=== PATIENT | female | born 1950 | race African-American/Black ===

== ENCOUNTER 2018-05-15 21:35 | Inpatient (IN) | payer MEDICARE, OTHER ==
[~2018-05-15] VITALS: Ht 162.6 cm; Wt 71.7 kg
[~2018-05-15 21:35] MED LIST: ACET-2708 PO; AMLO10TA80 PO; HYDR-4009 PO; LOVA20TA2 PO; RANI300C8 PO
[2018-05-15 22:20] VITALS: BP 115/50
[2018-05-16] MEDS ORDERED: ACETAMINOPHEN 325MG TABLET PO PRN (00:15)
[2018-05-16] MEDS ORDERED: OXYCODONE HCL 5MG TABLET PO PRN (00:15)
[2018-05-16] MEDS ORDERED: SENNOSIDES/DOCUSATE SOD 8.6/50MG TABLET PO PRN (00:45)
[2018-05-16] MEDS ORDERED: ONDANSETRON HCL 4MG TABLET PO PRN (00:45)
[2018-05-16] MEDS ORDERED: IPRATROPIUM/ALBUTEROL 0.5-3(2.5)MG/3ML NEB HHN PRN (00:45)
[2018-05-16 02:21] VITALS: BP 115/50
[2018-05-16] MEDS: HYDROCODONE/ACETAMINOPHEN 10/325MG TABLET PO PRN ×6 (02:21→23:19)
[2018-05-16] MEDS: OMEPRAZOLE 20MG CAPSULE EXTENDED RELEASE PO SCH (07:06)
[2018-05-16] MEDS: MAGNESIUM HYDROXIDE 400MG/5ML 30ML UDC PO PRN (07:06)
[2018-05-16 08:00] VITALS: BP 104/56
[2018-05-16] MEDS: AMLODIPINE 10MG TABLET PO SCH (09:00)
[2018-05-16] MEDS: NICOTINE 21MG PATCH TD SCH (09:15)
[2018-05-16] MEDS: IPRATROPIUM/ALBUTEROL 0.5-3(2.5)MG/3ML NEB HHN SCH ×3 (09:22→20:14)
[2018-05-16] MEDS ORDERED: NA PHOS,M-B/NA PHOS,DI-BA ENEMA 118ML PR NR (09:45)
[2018-05-16] MEDS ORDERED: LACTULOSE 20G/30ML UDC PO NR (09:45)
[2018-05-16 09:56] LABS: BASOPHILS % 0.7 % (0.0-2.0); HEMATOCRIT. 29.3 % (36.0-48.0); LYMPHOCYTES % 23.7 % (20.0-50.0); MEAN CORPUSCULAR HEMOGLOBIN 30.7 pg (28.0-32.0); MEAN CORPUSCULAR VOLUME 89.4 fL (81.0-99.0); MEAN PLATELET VOLUME 7.7 fl (7.4-10.4); NEUTROPHILS % 62.6 % (40.0-76.0); PLATELET 328 x1000/uL (130-400); RED BLOOD CELL COUNT 3.27 mill/uL (4.2-5.4)
[2018-05-16 10:36] LABS: CHLORIDE 102 mEq/L (98-107)
[2018-05-16] MEDS ORDERED: BISACODYL 10MG SUPP PR PRN (10:45)
[2018-05-16 15:23] LABS: CLARITY URINE CLEAR (CLEAR); COLOR URINE YELLOW (YELLOW); KETONES URINE NEGATIVE (NEGATIVE); LEUKOCYTE ESTERASE URINE TRACE (NEGATIVE); NITRITE URINE NEGATIVE (NEGATIVE); OCCULT BLOOD URINE NEGATIVE (NEGATIVE); PROTEIN URINE NEGATIVE (NEGATIVE); SPECIFIC GRAVITY URINE 1.012 (1.005-1.030); UROBILINOGEN URINE 0.2 E.U./dL (0.2-1.0)
[2018-05-16] MEDS: DOCUSATE SODIUM 100MG CAPSULE PO SCH (17:00)
[2018-05-16 20:00] VITALS: BP 104/63
[2018-05-16] MEDS: ATORVASTATIN CALCIUM 20MG TABLET PO SCH (21:16)
[2018-05-16] MEDS: POLYETHYLENE GLYCOL 3350 (17GM) 1 DOSE PACK PO SCH (21:16)
[2018-05-17] MEDS: IPRATROPIUM/ALBUTEROL 0.5-3(2.5)MG/3ML NEB HHN SCH ×4 (00:10→20:30)
[2018-05-17] MEDS: HYDROCODONE/ACETAMINOPHEN 10/325MG TABLET PO PRN ×3 (03:38→14:37)
[2018-05-17 06:40] VITALS: BP 103/60
[2018-05-17] MEDS: OMEPRAZOLE 20MG CAPSULE EXTENDED RELEASE PO SCH (06:43)
[2018-05-17 08:10] LABS: EOSINOPHILS % 1.6 % (0.0-5.0); HEMATOCRIT. 29.7 % (36.0-48.0); HEMOGLOBIN. 10.1 g/dL (12.0-16.0); LYMPHOCYTES % 24.7 % (20.0-50.0); MEAN CORPUSCULAR HEMOGLOBIN 30.1 pg (28.0-32.0); MEAN CORPUSCULAR VOLUME 88.9 fL (81.0-99.0); MEAN PLATELET VOLUME 7.4 fl (7.4-10.4); MONOCYTES % 10.9 % (2.0-8.0); NEUTROPHILS % 61.8 % (40.0-76.0); PLATELET 377 x1000/uL (130-400); RED BLOOD CELL COUNT 3.35 mill/uL (4.2-5.4)
[2018-05-17 08:34] LABS: CHLORIDE 100 mEq/L (98-107)
[2018-05-17] MEDS: NICOTINE 21MG PATCH TD SCH (08:45)
[2018-05-17] MEDS: AMLODIPINE 10MG TABLET PO SCH (08:45)
[2018-05-17] MEDS: DOCUSATE SODIUM 100MG CAPSULE PO SCH ×2 (08:45→16:31)
[2018-05-17 09:45] VITALS: BP 106/72
[2018-05-17 10:11] LABS: CLARITY URINE CLEAR (CLEAR); COLOR URINE YELLOW (YELLOW); KETONES URINE NEGATIVE (NEGATIVE); LEUKOCYTE ESTERASE URINE NEGATIVE (NEGATIVE); NITRITE URINE NEGATIVE (NEGATIVE); OCCULT BLOOD URINE NEGATIVE (NEGATIVE); PROTEIN URINE NEGATIVE (NEGATIVE); SPECIFIC GRAVITY URINE 1.011 (1.005-1.030); UROBILINOGEN URINE 0.2 E.U./dL (0.2-1.0)
[2018-05-17] MEDS: TRAMADOL 50MG TABLET PO PRN (10:15)
[2018-05-17 14:30] VITALS: BP 105/62
[2018-05-17 20:00] VITALS: BP 101/56
[2018-05-17] MEDS: POLYETHYLENE GLYCOL 3350 (17GM) 1 DOSE PACK PO SCH (21:44)
[2018-05-17] MEDS: ATORVASTATIN CALCIUM 20MG TABLET PO SCH (21:45)
[2018-05-17] MEDS: OXYCODONE HCL 20MG TABLET SR 12HR PO SCH (21:47)
[2018-05-18] VITALS: BP 108/66
[2018-05-18] MEDS: IPRATROPIUM/ALBUTEROL 0.5-3(2.5)MG/3ML NEB HHN SCH ×4 (02:31→21:58)
[2018-05-18] MEDS: HYDROCODONE/ACETAMINOPHEN 10/325MG TABLET PO PRN ×2 (02:51→17:46)
[2018-05-18] MEDS: OMEPRAZOLE 20MG CAPSULE EXTENDED RELEASE PO SCH (06:04)
[2018-05-18 07:00] VITALS: BP 97/62
[2018-05-18 07:25] LABS: BASOPHILS % 0.6 % (0.0-2.0); EOSINOPHILS % 2.2 % (0.0-5.0); LYMPHOCYTES % 31.5 % (20.0-50.0); MEAN CORPUSCULAR HEMOGLOBIN 30.8 pg (28.0-32.0); MEAN CORPUSCULAR VOLUME 89.1 fL (81.0-99.0); MEAN PLATELET VOLUME 7.6 fl (7.4-10.4); MONOCYTES % 11.3 % (2.0-8.0); NEUTROPHILS % 54.4 % (40.0-76.0); PLATELET 382 x1000/uL (130-400); RED BLOOD CELL COUNT 2.92 mill/uL (4.2-5.4); RED CELL DISTRIBUTION WIDTH 13.9 % (11.6-14.6)
[2018-05-18 07:35] LABS: CHLORIDE 102 mEq/L (98-107)
[2018-05-18 07:43] LABS: PHOSPHORUS 2.6 mg/dL (2.5-4.9)
[2018-05-18 07:46] LABS: CREATINE KINASE 89 IU/L (26-192); TOTAL IRON BINDING CAPACITY 268 ug/dL (250-450)
[2018-05-18 08:03] LABS: VITAMIN B12 SERUM 815 pg/mL (211-911)
[2018-05-18] MEDS: DOCUSATE SODIUM 100MG CAPSULE PO SCH ×2 (08:17→16:55)
[2018-05-18] MEDS: NICOTINE 21MG PATCH TD SCH (08:17)
[2018-05-18 08:18] LABS: FOLIC ACID (FOLATE) SERUM > 20.00 ng/mL (>5.38)
[2018-05-18] MEDS: OXYCODONE HCL 20MG TABLET SR 12HR PO SCH ×2 (08:20→21:58)
[2018-05-18] MEDS: AMLODIPINE 10MG TABLET PO SCH (08:24)
[2018-05-18 15:10] LABS: FERRITIN 264 ng/mL (10-291)
[2018-05-18] MEDS: LACTULOSE 20G/30ML UDC PO SCH ×2 (16:55→21:00)
[2018-05-18] MEDS: FERROUS SULFATE 325MG TABLET PO SCH (16:55)
[2018-05-18 17:40] VITALS: BP 115/70
[2018-05-18 20:00] VITALS: BP 103/63
[2018-05-18] MEDS: POLYETHYLENE GLYCOL 3350 (17GM) 1 DOSE PACK PO SCH (21:00)
[2018-05-18] MEDS: ATORVASTATIN CALCIUM 20MG TABLET PO SCH (21:57)
[2018-05-19] MEDS: IPRATROPIUM/ALBUTEROL 0.5-3(2.5)MG/3ML NEB HHN SCH ×4 (02:00→20:15)
[2018-05-19] MEDS: HYDROCODONE/ACETAMINOPHEN 10/325MG TABLET PO PRN (03:43)
[2018-05-19] MEDS: OMEPRAZOLE 20MG CAPSULE EXTENDED RELEASE PO SCH (06:22)
[2018-05-19 07:14] LABS: CHLORIDE 104 mEq/L (98-107)
[2018-05-19 07:41] LABS: BASOPHILS % 0.8 % (0.0-2.0); EOSINOPHILS % 2.6 % (0.0-5.0); HEMOGLOBIN. 8.9 g/dL (12.0-16.0); LYMPHOCYTES % 34.4 % (20.0-50.0); MEAN CORPUSCULAR HEMOGLOBIN 30.7 pg (28.0-32.0); MEAN CORPUSCULAR VOLUME 89.1 fL (81.0-99.0); MEAN PLATELET VOLUME 7.6 fl (7.4-10.4); MONOCYTES % 11.5 % (2.0-8.0); NEUTROPHILS % 50.7 % (40.0-76.0); PLATELET 419 x1000/uL (130-400); RED BLOOD CELL COUNT 2.91 mill/uL (4.2-5.4); RED CELL DISTRIBUTION WIDTH 13.8 % (11.6-14.6)
[2018-05-19 08:00] VITALS: BP_SYST 107; BP_SYST 114; BP_DIAS 65; BP_DIAS 72
[2018-05-19] MEDS: ASCORBIC ACID 500 MG TABLET PO SCH (08:53)
[2018-05-19] MEDS: FERROUS SULFATE 325MG TABLET PO SCH ×3 (08:53→17:33)
[2018-05-19] MEDS: NICOTINE 21MG PATCH TD SCH (08:53)
[2018-05-19] MEDS: OXYCODONE HCL 20MG TABLET SR 12HR PO SCH ×2 (08:54→21:48)
[2018-05-19] MEDS: DOCUSATE SODIUM 100MG CAPSULE PO SCH ×2 (08:59→17:00)
[2018-05-19] MEDS: LACTULOSE 20G/30ML UDC PO SCH (08:59)
[2018-05-19] MEDS: AMLODIPINE 10MG TABLET PO SCH (08:59)
[2018-05-19] MEDS: TRAMADOL 50MG TABLET PO PRN (13:18)
[2018-05-19 20:00] VITALS: BP_SYST 118; BP_DIAS 67; BP_DIAS 97
[2018-05-19] MEDS: POLYETHYLENE GLYCOL 3350 (17GM) 1 DOSE PACK PO SCH (21:00)
[2018-05-19] MEDS: ATORVASTATIN CALCIUM 20MG TABLET PO SCH (21:46)
[2018-05-20] MEDS: IPRATROPIUM/ALBUTEROL 0.5-3(2.5)MG/3ML NEB HHN SCH ×4 (01:56→21:30)
[2018-05-20] MEDS: HYDROCODONE/ACETAMINOPHEN 10/325MG TABLET PO PRN ×2 (03:18→14:21)
[2018-05-20 07:20] LABS: EOSINOPHILS % 2.2 % (0.0-5.0); HEMATOCRIT. 26.8 % (36.0-48.0); HEMOGLOBIN. 9.1 g/dL (12.0-16.0); LYMPHOCYTES % 26.3 % (20.0-50.0); MEAN CORPUSCULAR HEMOGLOBIN 30.4 pg (28.0-32.0); MEAN CORPUSCULAR VOLUME 89.1 fL (81.0-99.0); MEAN PLATELET VOLUME 7.3 fl (7.4-10.4); MONOCYTES % 9.9 % (2.0-8.0); NEUTROPHILS % 60.6 % (40.0-76.0); PLATELET 461 x1000/uL (130-400); RED BLOOD CELL COUNT 3.01 mill/uL (4.2-5.4); RED CELL DISTRIBUTION WIDTH 13.7 % (11.6-14.6)
[2018-05-20 07:42] LABS: CHLORIDE 101 mEq/L (98-107)
[2018-05-20 08:19] VITALS: BP 113/61
[2018-05-20] MEDS: NICOTINE 21MG PATCH TD SCH (08:57)
[2018-05-20] MEDS: OXYCODONE HCL 20MG TABLET SR 12HR PO SCH ×2 (08:58→21:05)
[2018-05-20] MEDS: AMLODIPINE 10MG TABLET PO SCH (08:59)
[2018-05-20] MEDS: DOCUSATE SODIUM 100MG CAPSULE PO SCH ×2 (08:59→17:11)
[2018-05-20] MEDS: ASCORBIC ACID 500 MG TABLET PO SCH (08:59)
[2018-05-20] MEDS: FERROUS SULFATE 325MG TABLET PO SCH ×3 (09:00→17:11)
[2018-05-20] MEDS: FAMOTIDINE 20MG TABLET PO SCH ×2 (09:00→17:11)
[2018-05-20 20:00] VITALS: BP 112/65
[2018-05-20] MEDS: ATORVASTATIN CALCIUM 20MG TABLET PO SCH (21:03)
[2018-05-20] MEDS: POLYETHYLENE GLYCOL 3350 (17GM) 1 DOSE PACK PO SCH (21:04)
[2018-05-21] MEDS: IPRATROPIUM/ALBUTEROL 0.5-3(2.5)MG/3ML NEB HHN SCH ×3 (02:12→20:49)
[2018-05-21] MEDS: HYDROCODONE/ACETAMINOPHEN 10/325MG TABLET PO PRN ×2 (03:50→12:07)
[2018-05-21 06:53] LABS: BASOPHILS % 1.2 % (0.0-2.0); HEMATOCRIT. 25.8 % (36.0-48.0); LYMPHOCYTES % 31.3 % (20.0-50.0); MEAN CORPUSCULAR HEMOGLOBIN 30.9 pg (28.0-32.0); MEAN CORPUSCULAR VOLUME 88.7 fL (81.0-99.0); MEAN PLATELET VOLUME 7.1 fl (7.4-10.4); MONOCYTES % 11.6 % (2.0-8.0); NEUTROPHILS % 52.9 % (40.0-76.0); PLATELET 500 x1000/uL (130-400); RED BLOOD CELL COUNT 2.91 mill/uL (4.2-5.4); RED CELL DISTRIBUTION WIDTH 14.2 % (11.6-14.6)
[2018-05-21 07:55] LABS: CHLORIDE 104 mEq/L (98-107)
[2018-05-21 08:08] VITALS: BP 100/61
[2018-05-21] MEDS: ASCORBIC ACID 500 MG TABLET PO SCH (08:28)
[2018-05-21] MEDS: FERROUS SULFATE 325MG TABLET PO SCH ×3 (08:28→17:38)
[2018-05-21] MEDS: NICOTINE 21MG PATCH TD SCH (08:28)
[2018-05-21] MEDS: AMLODIPINE 10MG TABLET PO SCH (08:29)
[2018-05-21] MEDS: DOCUSATE SODIUM 100MG CAPSULE PO SCH ×2 (08:29→17:38)
[2018-05-21] MEDS: FAMOTIDINE 20MG TABLET PO SCH ×2 (08:29→17:38)
[2018-05-21] MEDS: OXYCODONE HCL 20MG TABLET SR 12HR PO SCH ×2 (08:31→20:16)
[2018-05-21 20:00] VITALS: BP 114/66
[2018-05-21] MEDS: ATORVASTATIN CALCIUM 20MG TABLET PO SCH (20:16)
[2018-05-21] MEDS: POLYETHYLENE GLYCOL 3350 (17GM) 1 DOSE PACK PO SCH (20:17)
[2018-05-22] MEDS: IPRATROPIUM/ALBUTEROL 0.5-3(2.5)MG/3ML NEB HHN SCH ×4 (01:00→21:12)
[2018-05-22] MEDS: HYDROCODONE/ACETAMINOPHEN 10/325MG TABLET PO PRN (03:58)
[2018-05-22 07:16] LABS: 25-HYDROXY VITAMIN D3 30 ng/mL (.)
[2018-05-22 08:00] VITALS: BP 104/61
[2018-05-22] MEDS: AMLODIPINE 10MG TABLET PO SCH (09:00)
[2018-05-22] MEDS: FERROUS SULFATE 325MG TABLET PO SCH ×3 (09:24→17:00)
[2018-05-22] MEDS: DOCUSATE SODIUM 100MG CAPSULE PO SCH ×2 (09:24→17:00)
[2018-05-22] MEDS: ASCORBIC ACID 500 MG TABLET PO SCH (09:24)
[2018-05-22] MEDS: NICOTINE 21MG PATCH TD SCH (09:24)
[2018-05-22] MEDS: FAMOTIDINE 20MG TABLET PO SCH ×2 (09:25→17:00)
[2018-05-22] MEDS: OXYCODONE HCL 20MG TABLET SR 12HR PO SCH ×2 (09:26→21:52)
[2018-05-22] MEDS ORDERED: HYDROCODONE/ACETAMINOPHEN 10/325MG TABLET PO PRN (16:30)
[2018-05-22 20:00] VITALS: BP 97/59
[2018-05-22] MEDS: POLYETHYLENE GLYCOL 3350 (17GM) 1 DOSE PACK PO SCH (21:00)
[2018-05-22] MEDS: ATORVASTATIN CALCIUM 20MG TABLET PO SCH (21:52)
[2018-05-23] MEDS: IPRATROPIUM/ALBUTEROL 0.5-3(2.5)MG/3ML NEB HHN SCH ×4 (02:08→19:40)
[2018-05-23] MEDS: HYDROCODONE/ACETAMINOPHEN 10/325MG TABLET PO PRN ×2 (05:29→18:13)
[2018-05-23 07:04] LABS: EOSINOPHILS % 2.7 % (0.0-5.0); HEMATOCRIT. 24.7 % (36.0-48.0); HEMOGLOBIN. 8.5 g/dL (12.0-16.0); LYMPHOCYTES % 28.8 % (20.0-50.0); MEAN CORPUSCULAR HEMOGLOBIN 30.5 pg (28.0-32.0); MEAN CORPUSCULAR VOLUME 88.9 fL (81.0-99.0); MEAN PLATELET VOLUME 6.7 fl (7.4-10.4); MONOCYTES % 10.1 % (2.0-8.0); NEUTROPHILS % 57.4 % (40.0-76.0); PLATELET 558 x1000/uL (130-400); RED BLOOD CELL COUNT 2.77 mill/uL (4.2-5.4); RED CELL DISTRIBUTION WIDTH 13.8 % (11.6-14.6)
[2018-05-23 07:26] LABS: CHLORIDE 105 mEq/L (98-107)
[2018-05-23 07:33] LABS: PHOSPHORUS 3.2 mg/dL (2.5-4.9)
[2018-05-23 08:07] VITALS: BP 92/50
[2018-05-23] MEDS: DOCUSATE SODIUM 100MG CAPSULE PO SCH ×2 (08:29→18:14)
[2018-05-23] MEDS: FAMOTIDINE 20MG TABLET PO SCH ×2 (08:30→18:14)
[2018-05-23] MEDS: FERROUS SULFATE 325MG TABLET PO SCH ×3 (08:30→18:14)
[2018-05-23] MEDS: ASCORBIC ACID 500 MG TABLET PO SCH (08:30)
[2018-05-23] MEDS: NICOTINE 21MG PATCH TD SCH (08:31)
[2018-05-23] MEDS: AMLODIPINE 10MG TABLET PO SCH (08:40)
[2018-05-23] MEDS: OXYCODONE HCL 20MG TABLET SR 12HR PO SCH ×2 (10:33→22:06)
[2018-05-23 20:00] VITALS: BP 108/62
[2018-05-23] MEDS: POLYETHYLENE GLYCOL 3350 (17GM) 1 DOSE PACK PO SCH (22:05)
[2018-05-23] MEDS: ATORVASTATIN CALCIUM 20MG TABLET PO SCH (22:05)
[2018-05-24] MEDS: IPRATROPIUM/ALBUTEROL 0.5-3(2.5)MG/3ML NEB HHN SCH ×5 (01:15→21:55)
[2018-05-24] MEDS: TRAMADOL 50MG TABLET PO PRN ×2 (06:09→13:47)
[2018-05-24] MEDS: MAGNESIUM HYDROXIDE 400MG/5ML 30ML UDC PO PRN (06:09)
[2018-05-24 08:02] VITALS: BP 107/60
[2018-05-24] MEDS: OXYCODONE HCL 20MG TABLET SR 12HR PO SCH ×2 (08:09→20:35)
[2018-05-24] MEDS: DOCUSATE SODIUM 100MG CAPSULE PO SCH ×2 (08:11→16:34)
[2018-05-24] MEDS: NICOTINE 21MG PATCH TD SCH (08:11)
[2018-05-24] MEDS: FAMOTIDINE 20MG TABLET PO SCH ×2 (08:11→16:34)
[2018-05-24] MEDS: FERROUS SULFATE 325MG TABLET PO SCH ×3 (08:12→16:35)
[2018-05-24] MEDS: ASCORBIC ACID 500 MG TABLET PO SCH (08:12)
[2018-05-24] MEDS: AMLODIPINE 10MG TABLET PO SCH (08:14)
[2018-05-24 20:00] VITALS: BP 116/75
[2018-05-24] MEDS: ATORVASTATIN CALCIUM 20MG TABLET PO SCH (20:34)
[2018-05-24] MEDS: POLYETHYLENE GLYCOL 3350 (17GM) 1 DOSE PACK PO SCH (20:36)
[2018-05-25] MEDS: IPRATROPIUM/ALBUTEROL 0.5-3(2.5)MG/3ML NEB HHN SCH ×2 (01:30→14:53)
[2018-05-25] MEDS: HYDROCODONE/ACETAMINOPHEN 10/325MG TABLET PO PRN (04:56)
[2018-05-25 07:08] LABS: BASOPHILS % 0.9 % (0.0-2.0); EOSINOPHILS % 3.1 % (0.0-5.0); HEMATOCRIT. 25.9 % (36.0-48.0); HEMOGLOBIN. 8.8 g/dL (12.0-16.0); LYMPHOCYTES % 31.4 % (20.0-50.0); MEAN CORPUSCULAR HEMOGLOBIN 29.9 pg (28.0-32.0); MEAN PLATELET VOLUME 6.6 fl (7.4-10.4); MONOCYTES % 9.5 % (2.0-8.0); NEUTROPHILS % 55.1 % (40.0-76.0); PLATELET 582 x1000/uL (130-400); RED BLOOD CELL COUNT 2.95 mill/uL (4.2-5.4); RED CELL DISTRIBUTION WIDTH 13.7 % (11.6-14.6)
[2018-05-25 07:43] LABS: CHLORIDE 105 mEq/L (98-107)
[2018-05-25 08:00] VITALS: BP 91/59
[2018-05-25] MEDS: AMLODIPINE 10MG TABLET PO SCH (09:00)
[2018-05-25] MEDS: ASCORBIC ACID 500 MG TABLET PO SCH (09:07)
[2018-05-25] MEDS: FERROUS SULFATE 325MG TABLET PO SCH ×3 (09:07→16:15)
[2018-05-25] MEDS: FAMOTIDINE 20MG TABLET PO SCH ×2 (09:07→16:15)
[2018-05-25] MEDS: DOCUSATE SODIUM 100MG CAPSULE PO SCH ×2 (09:07→16:15)
[2018-05-25] MEDS: NICOTINE 21MG PATCH TD SCH (09:09)
[2018-05-25] MEDS: OXYCODONE HCL 20MG TABLET SR 12HR PO SCH ×2 (09:42→22:15)
[2018-05-25] MEDS ORDERED: CALCIUM GLUCONATE 1,000 MG in DEXT 5% WATER 90 ML IV NR (14:30)
[2018-05-25 20:00] VITALS: BP 111/66
[2018-05-25] MEDS: POLYETHYLENE GLYCOL 3350 (17GM) 1 DOSE PACK PO SCH (22:14)
[2018-05-25] MEDS: ATORVASTATIN CALCIUM 20MG TABLET PO SCH (22:15)
[2018-05-26] MEDS: IPRATROPIUM/ALBUTEROL 0.5-3(2.5)MG/3ML NEB HHN SCH ×3 (01:00→14:37)
[2018-05-26 07:22] LABS: BASOPHILS % 1.2 % (0.0-2.0); EOSINOPHILS % 3.6 % (0.0-5.0); HEMATOCRIT. 28.1 % (36.0-48.0); HEMOGLOBIN. 9.6 g/dL (12.0-16.0); LYMPHOCYTES % 41.3 % (20.0-50.0); MEAN CORPUSCULAR HEMOGLOBIN 30.3 pg (28.0-32.0); MEAN CORPUSCULAR VOLUME 88.5 fL (81.0-99.0); MEAN PLATELET VOLUME 6.7 fl (7.4-10.4); MONOCYTES % 9.1 % (2.0-8.0); NEUTROPHILS % 44.8 % (40.0-76.0); PLATELET 618 x1000/uL (130-400); RED BLOOD CELL COUNT 3.18 mill/uL (4.2-5.4)
[2018-05-26 07:45] LABS: CHLORIDE 105 mEq/L (98-107)
[2018-05-26 07:58] LABS: PHOSPHORUS 4.1 mg/dL (2.5-4.9)
[2018-05-26 08:00] VITALS: BP 118/72
[2018-05-26] MEDS: DOCUSATE SODIUM 100MG CAPSULE PO SCH (08:31)
[2018-05-26] MEDS: NICOTINE 21MG PATCH TD SCH (08:31)
[2018-05-26] MEDS: FERROUS SULFATE 325MG TABLET PO SCH ×2 (08:31→14:44)
[2018-05-26] MEDS: FAMOTIDINE 20MG TABLET PO SCH (08:31)
[2018-05-26] MEDS: ASCORBIC ACID 500 MG TABLET PO SCH (08:31)
[2018-05-26] MEDS: OXYCODONE HCL 20MG TABLET SR 12HR PO SCH (08:33)
[2018-05-26] MEDS: AMLODIPINE 10MG TABLET PO SCH (09:00)
[2018-05-26 12:34] VITALS: BP 118/72
[2018-05-26] MEDS ORDERED: ATOR20TA PO (12:55)
[2018-05-26] MEDS ORDERED: ASCO500T20 PO (12:55)
[2018-05-26] MEDS ORDERED: FERR325T23 PO (12:55)
[2018-05-26] MEDS ORDERED: FAMO20TA8 PO (12:55)
[2018-05-26] MEDS ORDERED: AMLO10TA80 PO (12:55)
[2018-05-26] MEDS ORDERED: NICO-682 TD (13:01)
== END 2018-05-26 15:20 | disposition home or self-care (01) | DRG 552 ==
PROVIDERS: ADMIT Physical Medicine & Rehabilitation Spinal Cord Injury Medicine; ATTEND Internal Medicine
DX: M43.16 Spondylolisthesis, lumbar region (principal); G82.20 Paraplegia, unspecified; G95.9 Disease of spinal cord, unspecified; C50.919 Malignant neoplasm of unspecified site of unspecified female breast; E78.00 Pure hypercholesterolemia, unspecified; E78.5 Hyperlipidemia, unspecified; F17.200 Nicotine dependence, unspecified, uncomplicated; G89.4 Chronic pain syndrome; I10 Essential (primary) hypertension; K21.9 Gastro-esophageal reflux disease without esophagitis; K59.00 Constipation, unspecified; M48.061 Spinal stenosis, lumbar region without neurogenic claudication; M54.5 Low back pain; R26.9 Unspecified abnormalities of gait and mobility; D50.9 Iron deficiency anemia, unspecified; E83.41 Hypermagnesemia; E83.42 Hypomagnesemia; F39 Unspecified mood [affective] disorder; Z82.49 Family history of ischemic heart disease and other diseases of the circulatory system; Z85.3 Personal history of malignant neoplasm of breast; Z98.1 Arthrodesis status; Z90.10 Acquired absence of unspecified breast and nipple
CPT/HCPCS: 36415; 71045; 80048; 80053; 81003; 82306; 82550; 82607; 82728; 82746; 83540; 83550; 83690; 83735; 84100; 84134; 84443; 84630; 85025; 87040; 87086; 92610; 93970; 94640; 97110; 97112; 97116; 97162; 97166; 97530; 97535; C1893; J0610; J7050; J7060; J7620

== ENCOUNTER → 2018-07-28 | Outpatient (CLI) | payer MEDICARE, OTHER ==
[~2018-07-28] MED LIST changes: -ACET-2708 PO; +ASCO500T20 PO; +ATOR20TA PO; +FAMO20TA8 PO; +FERR325T23 PO; -HYDR-4009 PO; -LOVA20TA2 PO; +NICO-682 TD; -RANI300C8 PO
== END | disposition home or self-care (01) ==
LOC: RAD 10:49
PROVIDERS: ATTEND Neurological Surgery
DX: M51.36 Other intervertebral disc degeneration, lumbar region (principal); M48.061 Spinal stenosis, lumbar region without neurogenic claudication; I70.8 Atherosclerosis of other arteries
CPT/HCPCS: 72114

== ENCOUNTER → 2019-04-28 | Outpatient (CLI) | payer MEDICARE, OTHER, BC | END | disposition home or self-care (01) | LOC: CT 12:45 | PROVIDERS: ATTEND Neurological Surgery | DX: M47.816 Spondylosis without myelopathy or radiculopathy, lumbar region (principal); M12.88 Other specific arthropathies, not elsewhere classified, other specified site; M51.26 Other intervertebral disc displacement, lumbar region | CPT/HCPCS: 72131 ==